=== PATIENT | female | born 1980 | race Caucasian/White ===

== ENCOUNTER 2019-01-27 11:15 | Emergency (ER) | payer BC ==
--- NOTE | 2019-01-27 11:41 | EDM.PDOC ---
ED HPI GENERAL MEDICAL PROBLEM - General Chief Complaint: Syncope Stated Complaint: SYNCOPE LAST NIGHT Time Seen by Provider: 01/27/19 11:19 Source of Information: Reports: Patient History Limitations: Reports: No Limitations - History of Present Illness INITIAL COMMENTS - FREE TEXT/NARRATIVE: Patient was set girls night out last night and did have some alcohol during her shopping event. She came home and went to sleep and around 1050 she sound like she must got to the bathroom had a little bit of abdominal cramping and the next thing she knew she woke up off the bathroom floor. She had a little bleeding from her mouth and cheek from bumping her upper lip with her tooth. She was able to get back up on the bathroom and then had a bowel movement that was somewhat loose but no bladder black looking stool. She then had a short episode of left arm numbness and left-sided chest pain. Lasted only a few seconds, did not cause her to faint again or have diaphoresis or shortness of breath. No palpitations. The symptoms of her left chest and arm is patent and then she was able to finally stand and drink some water and was able to lay back down. She woke up this morning feeling a lot better. She had a bump on her forehead no neck pain or back pain no other injury noted. 8 breakfast this morning and thought she better come in for further evaluation. Head Pain Score (Numeric/FACES): 4 Neck Pain Score (Numeric/FACES): 5 Middle Abdomen Pain Score (Numeric/FACES): 2 ED ROS GENERAL - Review of Systems Review Of Systems: See Below Constitutional: Reports: No Symptoms. Denies: Fever, Fatigue, Night Sweats, Diaphoresis, Decreased Appetite, Weight Loss HEENT: Denies: Eye Discharge, Eye Pain, Glasses, Vision Change Respiratory: Denies: Shortness of Breath, Cough Cardiovascular: Reports: Chest Pain, Lightheadedness, Syncope. Denies: Blood Pressure Problem, Dyspnea on Exertion, Palpitations, PND Endocrine: Denies: High Glucose, Low Glucose GI/Abdominal: Reports: Abdominal Pain. Denies: Hematemesis, Hematochezia, Nausea, Stool Incontinence, Vomiting : Reports: Irregular Menses. Denies: Dysuria, Frequency, Hematuria Musculoskeletal: Denies: Neck Pain, Shoulder Pain Skin: Denies: Bruising Neurological: Reports: Syncope, Tingling. Denies: Confusion, Dizziness, Headache, Numbness, Paresthesia, Pre-Existing Deficit, Seizure, Trouble Speaking , Difficulty Walking, Gait Disturbance Psychiatric: Reports: No Symptoms. Denies: Anxiety - Physical Exam Exam: See Below Exam Limited By: No Limitations General Appearance: Alert, WD/WN, No Apparent Distress Eye Exam: Bilateral Eye: EOMI, PERRL Throat/Mouth: Normal Inspection, Normal Oropharynx Head Exam: Atraumatic, Normocephalic Neck: Normal Inspection, Supple, Non-Tender, Full Range of Motion Respiratory/Chest: No Respiratory Distress, Lungs Clear, Normal Breath Sounds, No Accessory Muscle Use, Chest Non-Tender Cardiovascular: Normal Peripheral Pulses, Regular Rate, Rhythm, No Edema, No JVD , No Murmur GI/Abdominal: Normal Bowel Sounds, Soft, Non-Tender, No Organomegaly, No Distention, No Abnormal Bruit, No Mass Neuro Exam (Abbreviated): Alert, Oriented, CN II-XII Intact, Normal Cognition, Normal Gait, Normal Reflexes, No Motor/Sensory Deficits Extremities: Normal Inspection Psychiatric: Normal Affect, Normal Mood Skin Exam: Warm, Dry EKG INTERPRETATION EKG Date: 01/27/19 Rhythm: NSR EKG Interpretation Comments: EKG performed at 1201 demonstrates normal sinus rhythm rate of 60 2 PM 190 QRS is a subcuticular 425.No prolonged QT syndrome, no preexcitation changes, no arrhythmia, no acute ischemia. Course - Vital Signs Text/Narrative:: Examination, review of old records, EKG, telemetry, orthostatic vital signs, labs seems a lot like a vasovagal episode with the onset of crampy abdominal pain going to the bathroom and then having the fainting spell. She did have some intermittent chest pain and therefore will screen at EKG she otherwise other than family history is no other risk factors. Doubt pulmonary embolism, placed on a monitor and do an EKG to rule out any arrhythmia. Last Recorded V/S: Last Vital Signs Temp 98.7 F 01/27/19 11:24 Pulse 62 01/27/19 11:24 Resp 16 01/27/19 11:24 BP 152/89 H 01/27/19 11:24 Pulse Ox 99 01/27/19 11:24 Orthostatic Blood Pressure [ 118/74 Standing] Orthostatic Blood Pressure [ 132/79 Sitting] Orthostatic Blood Pressure [ 113/69 Supine] - Orders/Labs/Meds Orders: Active Orders 24 hr Category Date Time Status Cardiac Monitoring [RC] . DIRECTED Care 01/27/19 11:42 Active EKG Documentation Completion [RC] STAT Care 01/27/19 11:41 Active Orthostatic Vital Signs [RC] ASDIRECTED Care 01/27/19 11:42 Active Labs: Laboratory Tests 01/27/19 01/27/19 01/27/19 Range/Units 11:55 11:55 11:55 WBC 7.42 (3.98-10.04) K/mm3 RBC 4.75 (3.98-5.22) M/mm3 Hgb 12.9 (11.2-15.7) gm/dl Hct 38.9 (34.1-44.9) % MCV 81.9 (79.4-94.8) fl MCH 27.2 (25.6-32.2) pg MCHC 33.2 (32.2-35.5) g/dl RDW Std Deviation 38.1 (36.4-46.3) fL Plt Count 269 (182-369) K/mm3 MPV 9.1 L (9.4-12.3) fl Neutrophils % (Manual) 60 (40-60) % Band Neutrophils % 0 (0-10) % Lymphocytes % (Manual) 35 (20-40) % Atypical Lymphs % 0 % Monocytes % (Manual) 3 (2-10) % Eosinophils % (Manual) 1 (0.7-5.8) % Basophils % (Manual) 1 (0.1-1.2) Platelet Estimate Adequate Plt Morphology Comment See note RBC Morph Comment Normal Sodium 144 (136-145) mEq/L Potassium 4.2 (3.5-5.1) mEq/L Chloride 107 (98-107) mEq/L Carbon Dioxide 28 (21-32) mEq/L Anion Gap 13.2 (5-15) BUN 12 (7-18) mg/dL Creatinine 0.8 (0.55-1.02) mg/dL Est Cr Clr Drug Dosing 73.93 mL/min Estimated GFR (MDRD) > 60 (>60) mL/min BUN/Creatinine Ratio 15.0 (14-18) Glucose 93 (74-106) mg/dL Calcium 8.9 (8.5-10.1) mg/dL Total Bilirubin 0.3 (0.2-1.0) mg/dL AST 14 L (15-37) U/L ALT 29 (14-59) U/L Alkaline Phosphatase 58 (46-116) U/L Total Protein 7.7 (6.4-8.2) g/dl Albumin 3.7 (3.4-5.0) g/dl Globulin 4.0 gm/dL Albumin/Globulin Ratio 0.9 L (1-2) HCG, Qual Negative (NEGATIVE) Urine Color (Yellow) Urine Appearance (Clear) Urine pH (5.0-8.0) Ur Specific [place] (1.005-1.030) Urine Protein (Negative) Urine Glucose (UA) (Negative) Urine Ketones (Negative) Urine Occult Blood (Negative) Urine Nitrite (Negative) Urine Bilirubin (Negative) Urine Urobilinogen (0.2-1.0) Ur Leukocyte Esterase (Negative) Urine RBC (0-5) /hpf Urine WBC (0-5) /hpf Ur Epithelial Cells (0-5) /hpf Urine Bacteria (FEW) /hpf Urine Mucus (FEW) /hpf 01/27/19 Range/Units 12:52 WBC (3.98-10.04) K/mm3 RBC (3.98-5.22) M/mm3 Hgb (11.2-15.7) gm/dl Hct (34.1-44.9) % MCV (79.4-94.8) fl MCH (25.6-32.2) pg MCHC (32.2-35.5) g/dl RDW Std Deviation (36.4-46.3) fL Plt Count (182-369) K/mm3 MPV (9.4-12.3) fl Neutrophils % (Manual) (40-60) % Band Neutrophils % (0-10) % Lymphocytes % (Manual) (20-40) % Atypical Lymphs % % Monocytes % (Manual) (2-10) % Eosinophils % (Manual) (0.7-5.8) % Basophils % (Manual) (0.1-1.2) Platelet Estimate Plt Morphology Comment RBC Morph Comment Sodium (136-145) mEq/L Potassium (3.5-5.1) mEq/L Chloride (98-107) mEq/L Carbon Dioxide (21-32) mEq/L Anion Gap (5-15) BUN (7-18) mg/dL Creatinine (0.55-1.02) mg/dL Est Cr Clr Drug Dosing mL/min Estimated GFR (MDRD) (>60) mL/min BUN/Creatinine Ratio (14-18) Glucose (74-106) mg/dL Calcium (8.5-10.1) mg/dL Total Bilirubin (0.2-1.0) mg/dL AST (15-37) U/L ALT (14-59) U/L Alkaline Phosphatase (46-116) U/L Total Protein (6.4-8.2) g/dl Albumin (3.4-5.0) g/dl Globulin gm/dL Albumin/Globulin Ratio (1-2) HCG, Qual (NEGATIVE) Urine Color Yellow (Yellow) Urine Appearance Clear (Clear) Urine pH 5.5 (5.0-8.0) Ur Specific [place] 1.025 (1.005-1.030) Urine Protein Negative (Negative) Urine Glucose (UA) Negative (Negative) Urine Ketones Negative (Negative) Urine Occult Blood Negative (Negative) Urine Nitrite Negative (Negative) Urine Bilirubin Negative (Negative) Urine Urobilinogen 0.2 (0.2-1.0) Ur Leukocyte Esterase Negative (Negative) Urine RBC Not seen (0-5) /hpf Urine WBC Not seen (0-5) /hpf Ur Epithelial Cells 0-5 (0-5) /hpf Urine Bacteria Few (FEW) /hpf Urine Mucus Rare (FEW) /hpf - Re-Assessments/Exams Free Text/Narrative Re-Assessment/Exam: 01/27/19 12:52 patient continues to do well her blood pressures were unstable, orthostatic vital signs are normal, CBC and metabolic panel are normal. EKG is unremarkable. Urinalysis is pending. Patient is not . Suspect vasovagal syncope Doubt acute coronary syndrome or arrhythmia or PE,recommend that she follow up with her primary care physician Departure - Departure Time of Disposition: 13:16 Disposition: Home, Self-Care 01 Condition: Good, Fair Clinical Impression: Syncope, Vasovagal syncope - Discharge Information *PRESCRIPTION DRUG MONITORING PROGRAM REVIEWED*: Not Applicable *COPY OF PRESCRIPTION DRUG MONITORING REPORT IN PATIENT ROGELIO: Not Applicable Instructions: Syncope, [id number] Referrals: Joy Arellano MD [Primary Care Provider] - Forms: ED Department Discharge Additional Instructions: follow-up with primary care next week. Rest and drink plenty of fluids today. Return to the emergency department or call 911 if recurrent fainting spell, chest pain shortness of breath, weakness abdominal pain, worse - My Orders Last 24 Hours: My Active Orders 01/27/19 11:41 EKG Documentation Completion [RC] STAT 01/27/19 11:42 Cardiac Monitoring [RC] . DIRECTED Orthostatic Vital Signs [RC] ASDIRECTED - Assessment/Plan Last 24 Hours: My Active Orders 01/27/19 11:41 EKG Documentation Completion [RC] STAT 01/27/19 11:42 Cardiac Monitoring [RC] . DIRECTED Orthostatic Vital Signs [RC] ASDIRECTED
== END 2019-01-27 13:49 | disposition home or self-care (01) ==
LOC: JD.ED 11:15
DX: R55 Syncope and collapse (principal)
CPT/HCPCS: 36415; 80053; 81001; 84703; 85007; 85027; 93005; 93010; 99283; 99285-25